=== PATIENT | male | born 1955 | race Caucasian/White ===

== ENCOUNTER → 2023-07-11 09:48 | Outpatient (REF) | payer BC, SELFPAY | LOC: HWRAD 09:48 | PROVIDERS: ATTENDING PHYSICIAN Nurse Practitioner | DX: J40 Bronchitis, not specified as acute or chronic (principal) | CPT/HCPCS: 71046 ==

== ENCOUNTER → 2023-08-02 09:36 | Outpatient (REF) | payer BC, SELFPAY ==
[2023-08-02 12:10] LABS: ALT (SGPT) 50 U/L (0-50); AST (SGOT) 41 U/L (17-59); HDL Cholesterol 51 mg/dl; LDL Cholesterol, Calculated 61 mg/dl; Total Cholesterol 121 mg/dl (50-199); Triglyceride 46 mg/dl (10-149); Very Low Density Lipoprotein 9 mg/dl (0-30)
== END ==
LOC: HWLAB 09:36
PROVIDERS: ATTENDING PHYSICIAN Nurse Practitioner
DX: E78.2 Mixed hyperlipidemia (principal)
CPT/HCPCS: 36415; 80061; 84450; 84460

== ENCOUNTER → 2023-11-14 09:08 | Outpatient (REF) | payer BC, SELFPAY | LOC: HWRAD 09:08 | PROVIDERS: ATTENDING PHYSICIAN Specialist; FAMILY PHYSICIAN Nurse Practitioner | DX: N20.1 Calculus of ureter (principal) | CPT/HCPCS: 74018 ==

== ENCOUNTER → 2024-01-26 09:18 | Outpatient (REF) | payer BC, SELFPAY ==
[2024-01-26 12:34] LABS: % Basophils 0.9 % (0-2); % Eosinophils 2.4 % (0-6); % Immature Granulocytes 0.2 % (0-0.5); % Lymphocytes 43.8 % (20.5-51.1); % Monocytes 9.7 % (1.7-9.3); Absolute Eosinophils 0.1 10^3/uL (0-0.7); Absolute Monocytes 0.5 10^3/uL (0.1-0.6); Hematocrit 41.3 % (39.0-52.0); Hemoglobin 14.6 g/dL (13.0-18.0); Mean Corp Hgb Conc. 35.4 g/dL (33.0-37.0); Mean Corpuscular Hgb 32.2 pg (27.0-31.0); Mean Corpuscular Volume 91.2 fL (80.0-94.0); Mean Platelet Volume 9.6 fL (7.4-10.4); Nucleated Red Blood Cells % 0 % (-); Platelet Count 203 10^3/uL (130-400); Red Blood Cell Count 4.53 10^6/uL (4.70-6.10); Red Cell Dist. Width 12.9 % (11.5-14.5); White Blood Cell Count 4.6 10^3/uL (4.8-10.8)
[2024-01-26 12:54] LABS: ALT (SGPT) 55 U/L (0-50); AST (SGOT) 43 U/L (17-59); Albumin 4.8 g/dl (3.5-5.0); Alkaline Phosphatase 78 U/L (38-126); Blood Urea Nitrogen 23 mg/dl (9-20); Carbon Dioxide 22 mmol/L (22-30); Chloride 100 mmol/L (98-107); Glucose 106 mg/dl (70-99); HDL Cholesterol 49 mg/dl; LDL Cholesterol, Calculated 63 mg/dl; Potassium 4.6 mmol/L (3.5-5.1); Sodium 134 mmol/L (135-145); Total Bilirubin 0.9 mg/dl (0.2-1.3); Total Cholesterol 122 mg/dl (50-199); Total Protein 7.3 g/dl (6.3-8.2); Triglyceride 52 mg/dl (10-149); Very Low Density Lipoprotein 10 mg/dl (0-30); eGFR > 60.00
[2024-01-26 13:22] LABS: PSA, Total - Screen 0.62 ng/ml (0.0-4.0); TSH Reflex To Free T4 0.82 uIU/ml (0.47-4.68)
== END ==
LOC: HWLAB 09:18
PROVIDERS: ATTENDING PHYSICIAN Nurse Practitioner
DX: Z00.01 Encounter for general adult medical examination with abnormal findings (principal); E78.2 Mixed hyperlipidemia; Z12.5 Encounter for screening for malignant neoplasm of prostate
CPT/HCPCS: 36415; 80053; 80061; 84443; 85025; G0103

== ENCOUNTER → 2024-02-02 09:24 | Outpatient (REF) | payer BC, SELFPAY ==
[2024-02-02 12:24] LABS: % Basophils 0.6 % (0-2); % Lymphocytes 43.4 % (20.5-51.1); % Monocytes 9.9 % (1.7-9.3); % Neutrophils 44.1 % (42.2-75.2); Absolute Eosinophils 0.1 10^3/uL (0-0.7); Absolute Lymphocytes 2.2 10^3/uL (1.2-3.4); Absolute Monocytes 0.5 10^3/uL (0.1-0.6); Absolute Neutrophils 2.2 10^3/uL (1.4-6.5); White Blood Cell Count 5.1 10^3/uL (4.8-10.8)
== END ==
LOC: HWLAB 09:24
PROVIDERS: ATTENDING PHYSICIAN Nurse Practitioner
DX: D72.819 Decreased white blood cell count, unspecified (principal)
CPT/HCPCS: 36415; 85004

== ENCOUNTER → 2024-05-10 09:00 | Outpatient (REF) | payer BC, SELFPAY ==
[2024-05-10 12:21] LABS: ALT (SGPT) 67 U/L (0-50); AST (SGOT) 41 U/L (17-59); Alkaline Phosphatase 66 U/L (38-126); Direct Bilirubin 0.2 mg/dl (0.0-0.4); Total Bilirubin 0.7 mg/dl (0.2-1.3); Total Protein 7.7 g/dl (6.3-8.2)
[2024-05-10 21:11] LABS: Hepatitis B Surface Antigen Negative (Negative)
[2024-05-10 21:30] LABS: Hepatitis A Antibody, Total Negative (Negative); Hepatitis B Core Ab, Total Negative (Negative); Hepatitis B Surface Antibody Negative; Hepatitis C Antibody Negative (Negative)
== END ==
LOC: HWLAB 09:00
PROVIDERS: ATTENDING PHYSICIAN Internal Medicine Gastroenterology; FAMILY PHYSICIAN Internal Medicine
DX: K76.0 Fatty (change of) liver, not elsewhere classified (principal)
CPT/HCPCS: 36415; 80076; 86704; 86706; 86708; 86803; 87340

== ENCOUNTER 2024-06-06 06:25 | Day surgery (SDC) | payer BC, SELFPAY | END 2024-06-06 13:43 | disposition home or self-care (01) | LOC: GI 06:25 | PROVIDERS: ATTENDING PHYSICIAN Internal Medicine Gastroenterology | DX: Z12.11 Encounter for screening for malignant neoplasm of colon (principal); K64.8 Other hemorrhoids; K57.30 Diverticulosis of large intestine without perforation or abscess without bleeding; D12.2 Benign neoplasm of ascending colon; D12.3 Benign neoplasm of transverse colon | CPT/HCPCS: 45385; 88305 ==

== ENCOUNTER → 2024-08-14 11:08 | Outpatient (REF) | payer BC, SELFPAY | LOC: HWRAD 11:08 | PROVIDERS: ATTENDING PHYSICIAN Internal Medicine; REFERRING PHYSICIAN Otolaryngology Facial Plastic Surgery | DX: K11.8 Other diseases of salivary glands (principal) | CPT/HCPCS: 76536 ==

== ENCOUNTER 2024-11-29 20:06 | Emergency (ER) | payer BC, SELFPAY ==
[2024-11-29 20:09] VITALS: BP 176/89
--- NOTE | 2024-11-29 21:46 | ED.GENMED ---
History of Present Illness
General
Chief Complaint: Swelling
Source: patient
Time Seen by Provider: 11/29/24 21:37
History of Present Illness
History of Present Illness:
69-year-old male with past medical history of hypertension hyperlipidemia presenting to the emergency department for evaluation after he noticed some discomfort to the left gastrocnemius over the last few days, today slightly worse after he went
golfing, thought the area looked a little bit more swollen so decided to come to the ER with concern for possible DVT. No history of bleeding or clotting disorder, no risk factors for clotting disorder. Patient does take a daily 81 mg aspirin.
Denies any chest pain or shortness of breath. No focal or direct trauma to the left lower leg.
Past History
Past History
ED Past Medical History: HTN and Hypercholesterolemia
ED Past Surgical History: Appendectomy
Social History
Tobacco: Non-smoker
Alcohol: Occasional
Drug: None
Personal:
Living: with family
Employment: Employed
Review of Systems
Review of Systems
All Other Systems: ROS reviewed and negative except as documented in HPI and ROS
Phy Exam
Physical Exam
Physical Exam:
GENERAL: Alert , in no apparent distress
EYE: conjunctiva clear
Head: Normocephalic atraumatic
NECK: Supple,
ENT: mmm.
LUNGS: no acute respiratory distress
NEUROLOGICAL: Alert and oriented
SKIN: Warm and dry, skin intact.
MUSCULOSKELETAL: Very mild soft tissue swelling to the left ankle. But no focal areas of tenderness. Easily palpable pedal and tibial pulse. Cap refill less than 2 seconds. Sensation grossly intact to light touch.
PSYCH: Normal and appropriate interaction.
Scores
Heart Failure Risk
Heart Failure Risk Score: Not Applicable
Course
Orders/Labs/Results
Orders:
Orders
11/29/24 20:07
Venous Doppler Lwr Ext Left [US Periph Venous LOWER Ext LT] Urgent
Comment:
Reason For Exam: pain/swelling LLE
Vital Signs
Initial and Last Documented VS:
Initial Vital Signs
Temp Pulse Resp BP Pulse Ox
98.0 F 78 15 176/89 98
11/29/24 20:09 11/29/24 20:09 11/29/24 20:09 11/29/24 20:09 11/29/24 20:09
Last Documented Vital Signs
Temp Pulse Resp BP Pulse Ox
98.0 F 71 16 140/82 97
11/29/24 20:09 11/29/24 21:55 11/29/24 21:55 11/29/24 21:55 11/29/24 21:55
MDM/Problems Addressed
Differential Diagnosis Includes:
- DVT
- Muscle strain
- Tendinitis
-Achilles tendon injury
- Zuniga's cyst
-Heat exhaustion
-Phlebitis
MDM/Problems Addressed:
69-year-old male presenting to the ER for evaluation of nontraumatic left lower extremity calf pain. He does have some mild soft tissue swelling to the ankle but otherwise no other signs of edema or infection. Ultrasound negative for DVT. Advised
ice and elevation, compression, Motrin/Tylenol as needed. Patient can follow-up with primary care provider. Stable for discharge home.
*Radiology
Radiology exam reviewed: radiology read reviewed
*Pulse Oximetry
SaO2: 98
Oxygen Mode of Delivery: Room air
Patient hypoxic: no
*Critical Care Note
Total Time (30-74mins, 75-104mins- exclusive of procedures): Not Applicable
ED Attending Note
-
Portions of this chart may have been created with voice recognition software.� Occasional wrong word or��sound alike� substitutions may have occurred due to the inherent limitations of voice recognition software.
Discharge Plan
Departure
Patient Disposition: Home (Routine Discharge)
Date of Disposition: 11/29/24
Time of Disposition: 21:46
Patient with high blood pressure during this ER visit?: Yes
Discharge Problem:
Pain of left calf
Instructions: STRAINS
Prescriptions:
No Action
multivitamin [One A Day] Tablet
1 tab PO DAILY
aspirin [Chanel Low Dose Aspirin] 81 mg Tablet,Delayed Release (Dr/Ec)
81 mg PO DAILY
amlodipine 10 mg Tablet
10 mg PO DAILY
simvastatin 20 mg Tablet
20 mg PO QPM
naproxen sodium [Aleve] 220 mg Capsule
220 mg PO BID PRN (Reason: pain)
Interventions
Interventions:
*Risk Screen - Suicide Last Done: 11/29/24 20:09
*General Assessment Last Done: 11/29/24 20:09
*Neglect/Abuse Screening Last Done: 11/29/24 20:09
*ED- Fall Risk Assessment Last Done: 11/29/24 21:55
*ED COVID-19 Vaccine History Last Done: 11/29/24 20:09
*Nursing Disposition Last Done: 11/29/24 21:55
ED- Cardiac Assessment Last Done: 11/29/24 21:46
ED- Pulmonary Assessment Last Done: 11/29/24 21:46
ED-Skin Assessment Last Done: 11/29/24 21:46
Discharge Date and Time
Discharge Date/Time: 11/29/24 21:55
Print Language: MALTESE
[2024-11-29 21:55] VITALS: BP 140/82
== END 2024-11-29 21:55 | disposition home or self-care (01) ==
LOC: EMR 20:06
PROVIDERS: EMERGENCY PHYSICIAN Emergency Medicine; FAMILY PHYSICIAN Family Medicine
DX: M79.662 Pain in left lower leg (principal); I10 Essential (primary) hypertension; E78.00 Pure hypercholesterolemia, unspecified
CPT/HCPCS: 99284; 93971

== ENCOUNTER → 2025-01-18 09:08 | Outpatient (REF) | payer BC, SELFPAY ==
[2025-01-18 12:31] LABS: Hematocrit 45.0 % (39.0-52.0); Hemoglobin 15.1 g/dL (13.0-18.0); Mean Corp Hgb Conc. 33.6 g/dL (33.0-37.0); Mean Corpuscular Volume 94.1 fL (80.0-94.0); Nucleated Red Blood Cells % 0 % (-); Platelet Count 218 10^3/uL (130-400); Red Cell Dist. Width 12.8 % (11.5-14.5)
[2025-01-18 14:28] LABS: ALT (SGPT) 63 U/L (0-50); AST (SGOT) 39 U/L (17-59); Albumin 5.1 g/dl (3.5-5.0); Alkaline Phosphatase 81 U/L (38-126); Blood Urea Nitrogen 24 mg/dl (9-20); Calcium 9.9 mg/dl (8.4-10.2); Carbon Dioxide 26 mmol/L (22-30); Chloride 101 mmol/L (98-107); Glucose 101 mg/dl (70-99); HDL Cholesterol 46 mg/dl; LDL Cholesterol, Calculated 68 mg/dl; Potassium 5.0 mmol/L (3.5-5.1); Sodium 135 mmol/L (135-145); Total Protein 7.7 g/dl (6.3-8.2); Very Low Density Lipoprotein 12 mg/dl (0-30); eGFR > 60.00
[2025-01-18 14:50] LABS: PSA, Total - Screen 0.73 ng/ml (0.0-4.0)
== END ==
LOC: HWLAB 09:08
PROVIDERS: ATTENDING PHYSICIAN Internal Medicine
DX: H34.9 Unspecified retinal vascular occlusion (principal); E78.2 Mixed hyperlipidemia; I10 Essential (primary) hypertension; K76.0 Fatty (change of) liver, not elsewhere classified; K11.8 Other diseases of salivary glands; Z12.5 Encounter for screening for malignant neoplasm of prostate
CPT/HCPCS: 36415; 80053; 80061; 84443; 85025; G0103

== ENCOUNTER 2025-05-19 15:19 | Emergency (ER) | payer BC, SELFPAY ==
[2025-05-19 15:23] VITALS: BP 153/110
--- NOTE | 2025-05-19 18:50 | ED.GENMED ---
History of Present Illness
General
Chief Complaint: Head Injury
Source: patient and family
Exam Limitations: none
Time Seen by Provider: 05/19/25 17:35
Nursing documentation reviewed up to this point in time: agreed with
History of Present Illness
History of Present Illness:
69-year-old male with past ministry of hypertension hyperlipidemia presenting to the emergency department today with concerns of a trip and fall in his garage where he hit the right anterior forehead sustained abrasion did not lose consciousness no
numbness or weakness. He contacted his primary care doctor they recommended coming to the ER for assessment and CT scan. Patient is on Plavix for previous stroke.
Past History
Past History
ED Past Medical History: HTN and Hypercholesterolemia
ED Past Surgical History: Appendectomy
Social History
Tobacco: Non-smoker
Alcohol: Occasional
Drug: None
Personal:
Living: with family
Employment: Employed
Review of Systems
Review of Systems
Allergies reviewed?: Yes
All Other Systems: ROS reviewed and negative except as documented in HPI and ROS
Phy Exam
Physical Exam
Physical Exam:
GENERAL: Alert , in no apparent distress
EYE: pupils equal and reactive
NECK: Supple, no significant adenopathy.
ENT: Superficial abrasions of the right anterior frontal scalp roughly 3 cm in diameter. No active bleeding. o/p clr, mmm.
CARDIAC: Regular rate and rhythm .
LUNGS: Clear breath sounds bilaterally, no acute respiratory distress, no wheezes/rales/rhonchi
ABDOMEN: Soft, without focal tenderness, no r/g, no cvat
NEUROLOGICAL: Alert and oriented, no focal neuro deficits
SKIN: Warm and dry, skin intact.
MUSCULOSKELETAL: No edema, well perfused.
PSYCH: Normal and appropriate interaction.
Course
Orders/Labs/Results
Orders:
Orders
05/19/25 15:27
CT Head W/o Iv Contrast Urgent
Comment:
Reason For Exam: head injury on plavix
05/19/25 18:49
Tetanus/Diphth/Acelpertussis [Adacel] 0.5 ml IM .ONCE ONE
Vital Signs
Initial and Last Documented VS:
Initial Vital Signs
Temp Pulse Resp BP Pulse Ox
98.4 F 78 18 153/110 97
05/19/25 15:23 05/19/25 15:23 05/19/25 15:23 05/19/25 15:23 05/19/25 15:23
Last Documented Vital Signs
Temp Pulse Resp BP Pulse Ox
98.4 F 78 18 153/110 97
05/19/25 15:23 05/19/25 15:23 05/19/25 15:23 05/19/25 15:23 05/19/25 15:23
Procedures
Laceration Closure
Right Superior Anterior Scalp:
Status of Wound: clean
Size of Wound in cm: 3
Description of Wound Edges: other (Superficial abrasion)
Preparation: cleaned with saline
Revision/Debridement: routine- no revision and irrigate-direct pressure
Wound exploration: explored to base- no FB
Type of Closure: Dermabond-skin glue
MDM/Problems Addressed
MDM/Problems Addressed:
69-year-old male presenting to the emergency department today with concerns of a superficial abrasion to the right forehead after a mechanical fall in his garage prior to arrival. He was given updated tetanus shot here. Neurologically intact. CT
scan without signs of bleeding. Otherwise here no evidence of emergent pathology stable for discharge. Abrasion closed with Dermabond.
*Pulse Oximetry
SaO2: 97
Oxygen Mode of Delivery: Room air
Patient hypoxic: no (97)
*Critical Care Note
Total Time (30-74mins, 75-104mins- exclusive of procedures): Not Applicable
ED Attending Note
-
Portions of this chart may have been created with voice recognition software.� Occasional wrong word or��sound alike� substitutions may have occurred due to the inherent limitations of voice recognition software.
Discharge Plan
Departure
Patient Disposition: Home (Routine Discharge)
Date of Disposition: 05/19/25
Time of Disposition: 18:50
Patient with high blood pressure during this ER visit?: No
Condition: Good
Covid-19: Not Applicable
Discharge Problem:
Fall, Abrasion of scalp
Instructions: Laceration Repair With Glue (DC), Minor Head Injury (DC)
Prescriptions:
No Action
multivitamin [One A Day] Tablet
1 tab PO DAILY
aspirin [Chanel Low Dose Aspirin] 81 mg Tablet,Delayed Release (Dr/Ec)
81 mg PO DAILY
amlodipine 10 mg Tablet
10 mg PO DAILY
simvastatin 20 mg Tablet
20 mg PO QPM
naproxen sodium [Aleve] 220 mg Capsule
220 mg PO BID PRN (Reason: pain)
Referrals:
Sri Carroll DO [Family Provider, Family Practice]
Activity Restrictions/Additional Instructions:
You came to the emergency department today after head injury. Here you had a CT scan without evidence of acute emergent injury. You had an abrasion that was covered in Dermabond. Please allow this to fall off over the next week or so. Please
keep the area clean and dry. Return for any worsening, new or concerning symptoms.
Interventions
Interventions:
*General Assessment Last Done: 05/19/25 15:23
*Neglect/Abuse Screening Last Done: 05/19/25 15:23
*Risk Screen - Suicide (C-SSRS) Last Done: 05/19/25 15:23
Discharge Date and Time
Print Language: ITALIAN
[2025-05-19] MEDS: ADACEL 0.5 ML IM (19:07)
== END 2025-05-19 19:12 | disposition home or self-care (01) ==
LOC: EMR 15:19
PROVIDERS: EMERGENCY PHYSICIAN Student in an Organized Health Care Education/Training Program; FAMILY PHYSICIAN Internal Medicine
DX: S00.01XA Abrasion of scalp, initial encounter (principal); W01.0XXA Fall on same level from slipping, tripping and stumbling without subsequent striking against object, initial encounter; I10 Essential (primary) hypertension; E78.00 Pure hypercholesterolemia, unspecified; Z86.73 Personal history of transient ischemic attack (TIA), and cerebral infarction without residual deficits; Z79.02 Long term (current) use of antithrombotics/antiplatelets; Z23 Encounter for immunization
CPT/HCPCS: 12002; 90471; 99284; 70450; 90715

== ENCOUNTER 2025-05-22 13:55 | Emergency (ER) | payer BC, SELFPAY ==
[2025-05-22 14:10] VITALS: BP 159/79
--- NOTE | 2025-05-22 14:20 | ED.GENMED ---
History of Present Illness
General
Chief Complaint: Facial Problem
Source: patient
Exam Limitations: none
Time Seen by Provider: 05/22/25 14:20
Nursing documentation reviewed up to this point in time: agreed with
History of Present Illness
History of Present Illness:
69-year-old male presenting to the emergency department today with concerns of swelling surrounding his right eye after a fall that he had a few days ago. Denies any worsening symptoms no headache no change in vision and otherwise feels very well
but does notice the increasing swelling. Unable to see his primary care doctor due to it being [place] thus came to the ER.
Past History
Past History
ED Past Medical History: HTN and Hypercholesterolemia
ED Past Surgical History: Appendectomy
Social History
Tobacco: Non-smoker
Alcohol: Occasional
Drug: None
Personal:
Living: with family
Employment: Employed
Review of Systems
Review of Systems
Allergies reviewed?: Yes
All Other Systems: ROS reviewed and negative except as documented in HPI and ROS
Phy Exam
Physical Exam
Physical Exam:
GENERAL: Alert , in no apparent distress
EYE: Ecchymosis in the periorbital area of the right eye but otherwise normal extraocular movements normal pupil reaction no involvement of the conjunctiva. Pupils equal and reactive
NECK: Supple, no significant adenopathy.
ENT: o/p clr, mmm.
CARDIAC: Regular rate and rhythm .
LUNGS: Clear breath sounds bilaterally, no acute respiratory distress, no wheezes/rales/rhonchi
ABDOMEN: Soft, without focal tenderness, no r/g, no cvat
NEUROLOGICAL: Alert and oriented, no focal neuro deficits
SKIN: Warm and dry, skin intact.
MUSCULOSKELETAL: No edema, well perfused.
PSYCH: Normal and appropriate interaction.
Course
Vital Signs
Initial and Last Documented VS:
Initial Vital Signs
Temp Pulse Resp BP Pulse Ox
98.1 F 79 16 159/79 98
05/22/25 14:10 05/22/25 14:10 05/22/25 14:10 05/22/25 14:10 05/22/25 14:10
Last Documented Vital Signs
Temp Pulse Resp BP Pulse Ox
98.1 F 79 16 159/79 98
05/22/25 14:10 05/22/25 14:10 05/22/25 14:10 05/22/25 14:10 05/22/25 14:10
MDM/Problems Addressed
MDM/Problems Addressed:
69-year-old male presenting to the emergency department today with concerns of bruising surrounding his right eye in the periorbital region. Was seen here 3 days ago after he hit his head and had a CT scan that was normal. He is on Plavix for
previous stroke. Vital signs are normal. Patient denies any current symptoms but is only concerned of the skin change and bruising. On examination there is no rapidly enlarging hematoma. No ongoing pain normal extraocular movements. Patient has
no symptoms consistent with brain bleed or worsening internal injury. Patient appears stable for discharge. Return precautions given.
*Pulse Oximetry
SaO2: 98
Oxygen Mode of Delivery: Room air
Patient hypoxic: no (98)
*Critical Care Note
Total Time (30-74mins, 75-104mins- exclusive of procedures): Not Applicable
ED Attending Note
-
Portions of this chart may have been created with voice recognition software.� Occasional wrong word or��sound alike� substitutions may have occurred due to the inherent limitations of voice recognition software.
Discharge Plan
Departure
Patient Disposition: Home (Routine Discharge)
Date of Disposition: 05/22/25
Time of Disposition: 14:22
Patient with high blood pressure during this ER visit?: No
Condition: Good
Covid-19: Not Applicable
Discharge Problem:
Bruise of face
Prescriptions:
No Action
multivitamin [One A Day] Tablet
1 tab PO DAILY
aspirin [Chanel Low Dose Aspirin] 81 mg Tablet,Delayed Release (Dr/Ec)
81 mg PO DAILY
amlodipine 10 mg Tablet
10 mg PO DAILY
simvastatin 20 mg Tablet
20 mg PO QPM
naproxen sodium [Aleve] 220 mg Capsule
220 mg PO BID PRN (Reason: pain)
Activity Restrictions/Additional Instructions:
You came to the emergency department today for concerns of increased bruising. This is likely a result of the natural evolution from your previous injury. Please return for any worsening, new or concerning symptoms.
Interventions
Interventions:
*Neglect/Abuse Screening Last Done: 05/22/25 14:10
*Risk Screen - Suicide (C-SSRS) Last Done: 05/22/25 14:10
Discharge Date and Time
Print Language: [place] CITIZ[place]
== END 2025-05-22 14:40 | disposition home or self-care (01) ==
LOC: EMR 13:55
PROVIDERS: EMERGENCY PHYSICIAN Emergency Medicine
DX: S00.83XA Contusion of other part of head, initial encounter (principal); W19.XXXA Unspecified fall, initial encounter
CPT/HCPCS: 99281